=== PATIENT | female | born 1945 | race Caucasian/White ===

== ENCOUNTER 2020-11-16 10:38 | Inpatient (IN) | payer MEDICARE ==
[~2020-11-16] VITALS: Ht 154.9 cm; Wt 54.4 kg
[~2020-11-16 10:38] MED LIST: AMBIEN5 MG PO; CO Q-10-VIT E-1 EACH PO; ELIQUIS2.5 MG PO; LEVOTHYROXINE50 MCG PO; OMEPRAZOLE20 MG PO; ONE DAILY COMP1 EACH PO; PRINIVIL20 MG PO; TAMOXIFEN CITRA20 MG PO; VITAMIN D35000 UNI1 PO; VOLTAREN EC 7575 MG PO; XANAX1 MG PO; ZOCOR20 MG PO; ZOLOFT100 MG PO
[2020-11-16 11:22] LABS: HEMOGLOBIN 14.4 gm/dl (12.3-15.3); RED BLOOD COUNT 4.5 M/UL (4.00-5.10); WHITE BLOOD COUNT 14.1 K/UL (4.5-11.0)
[2020-11-16 15:41] LABS: HEMOGLOBIN 13.3 gm/dl (12.3-15.3); RED BLOOD COUNT 4.2 M/UL (4.00-5.10)
[2020-11-16 15:42] LABS: WHITE BLOOD COUNT 22.8 K/UL (4.5-11.0)
[2020-11-16] MEDS ORDERED: HYDROCODON-ACE1 EAC6 PO (16:45)
[2020-11-16] MEDS ORDERED: ALENDRONATE SOD10 MG PO (16:45)
[2020-11-16] MEDS ORDERED: MAGNESIUM250 MG PO (16:46)
[2020-11-16] MEDS ORDERED: DOXEPIN HCL100 MG PO (16:46)
[2020-11-16] MEDS ORDERED: ANTIVERT 12.512.5 MG PO (16:46)
[2020-11-16] MEDS ORDERED: ARTHRITIS PAIN100 GM TP (16:47)
[2020-11-17 01:39] LABS: HEMOGLOBIN 12.1 gm/dl (12.3-15.3); RED BLOOD COUNT 3.85 M/UL (4.00-5.10)
[2020-11-17 01:52] LABS: WHITE BLOOD COUNT 10.4 K/UL (4.5-11.0)
[2020-11-18 07:11] LABS: HEMOGLOBIN 10.4 gm/dl (12.3-15.3); WHITE BLOOD COUNT 9.3 K/UL (4.5-11.0)
[2020-11-18 07:26] LABS: RED BLOOD COUNT 3.4 M/UL (4.00-5.10)
[2020-11-19 05:51] LABS: HEMOGLOBIN 10.2 gm/dl (12.3-15.3); RED BLOOD COUNT 3.25 M/UL (4.00-5.10); WHITE BLOOD COUNT 7.5 K/UL (4.5-11.0)
[2020-11-20 07:34] LABS: HEMOGLOBIN 10.2 gm/dl (12.3-15.3); RED BLOOD COUNT 3.25 M/UL (4.00-5.10); WHITE BLOOD COUNT 6.5 K/UL (4.5-11.0)
[2020-11-21 04:34] LABS: HEMOGLOBIN 9.7 gm/dl (12.3-15.3); RED BLOOD COUNT 3.28 M/UL (4.00-5.10); WHITE BLOOD COUNT 6.9 K/UL (4.5-11.0)
[2020-11-22 05:44] LABS: HEMOGLOBIN 10.6 gm/dl (12.3-15.3); RED BLOOD COUNT 3.45 M/UL (4.00-5.10)
[2020-11-22 05:45] LABS: WHITE BLOOD COUNT 9.6 K/UL (4.5-11.0)
[2020-11-22 05:55] LABS: BUN/CREATININE RATIO 24 (0-10)
--- NOTE | 2020-11-22 19:47 | NUR ---
PATIENT COMPLAIN OF BELLY ACHE, FAMILY REQUEST TUBE FEED OFF FOR THE MOMENT. TUBE FEED STOPPED AT THIS TIME. WILL REEVALUATE.
[2020-11-23 05:28] LABS: HEMOGLOBIN 10.6 gm/dl (12.3-15.3); RED BLOOD COUNT 3.41 M/UL (4.00-5.10); WHITE BLOOD COUNT 9.4 K/UL (4.5-11.0)
[2020-11-23 06:10] LABS: BUN/CREATININE RATIO 25 (0-10)
[2020-11-24 05:36] LABS: BUN/CREATININE RATIO 27 (0-10)
[2020-11-24 05:53] LABS: HEMOGLOBIN 10.1 gm/dl (12.3-15.3); RED BLOOD COUNT 3.3 M/UL (4.00-5.10); WHITE BLOOD COUNT 8.7 K/UL (4.5-11.0)
[2020-11-25 03:22] LABS: HEMOGLOBIN 10.4 gm/dl (12.3-15.3); RED BLOOD COUNT 3.35 M/UL (4.00-5.10); WHITE BLOOD COUNT 7.8 K/UL (4.5-11.0)
[2020-11-25 03:42] LABS: BUN/CREATININE RATIO 23 (0-10)
[2020-11-26 02:58] LABS: HEMOGLOBIN 10.3 gm/dl (12.3-15.3); RED BLOOD COUNT 3.29 M/UL (4.00-5.10)
[2020-11-26 03:25] LABS: BUN/CREATININE RATIO 20 (0-10)
[2020-11-26] MEDS ORDERED: IPRAT-ALBUT 0.5-3 ML NEB (11:54)
[2020-11-26] MEDS ORDERED: TOPROL XL100 MG PO (11:54)
[2020-11-26] MEDS ORDERED: CALCIUM500 M1 PO (11:54)
[2020-11-26] MEDS ORDERED: SPIRIVA RESPIMAT4 GM INH (11:54)
[2020-11-26] MEDS ORDERED: AUGMENTIN 875-1 EACH PO (11:54)
[2020-11-26] MEDS ORDERED: HYDROCODON-ACE1 EAC6 PO (16:22)
[2020-11-26] MEDS ORDERED: ALPRAZOLAM0.5 MG PO (16:22)
== END 2020-11-26 15:50 | disposition home health service (06) | DRG 871 ==
LOC: ER1 10:38 → CCU 12:14 → CDU 12:14 → PROG CARE 12:14 → CCU 13:58 → PROG CARE 11-24 19:39
PROVIDERS: Emergency Medicine; Internal Medicine; Internal Medicine Infectious Disease; ADMIT Internal Medicine Interventional Cardiology
PROC: 4A023N7 Measurement of Cardiac Sampling and Pressure, Left Heart, Percutaneous Approach (ICD-10-PCS; principal; 2020-11-16)
PROC: B211YZZ Fluoroscopy of Multiple Coronary Arteries using Other Contrast (ICD-10-PCS; 2020-11-16)
PROC: 4A033BC Measurement of Arterial Pressure, Coronary, Percutaneous Approach (ICD-10-PCS; 2020-11-16)
PROC: 5A09357 Assistance with Respiratory Ventilation, Less than 24 Consecutive Hours, Continuous Positive Airway Pressure (ICD-10-PCS; 2020-11-16)
PROC: 02H633Z Insertion of Infusion Device into Right Atrium, Percutaneous Approach (ICD-10-PCS; 2020-11-16)
PROC: B548ZZA Ultrasonography of Superior Vena Cava, Guidance (ICD-10-PCS; 2020-11-16)
DX: A41.9 Sepsis, unspecified organism (principal); R65.21 Severe sepsis with septic shock; J96.01 Acute respiratory failure with hypoxia; J18.9 Pneumonia, unspecified organism; G92 Toxic encephalopathy; C79.51 Secondary malignant neoplasm of bone; E87.2 Acidosis; C78.02 Secondary malignant neoplasm of left lung; C78.01 Secondary malignant neoplasm of right lung; C78.7 Secondary malignant neoplasm of liver and intrahepatic bile duct; I24.8 Other forms of acute ischemic heart disease; F05 Delirium due to known physiological condition; N17.9 Acute kidney failure, unspecified; Z20.822 Contact with and (suspected) exposure to COVID-19; E87.6 Hypokalemia; I95.9 Hypotension, unspecified; I10 Essential (primary) hypertension; E03.9 Hypothyroidism, unspecified; E78.5 Hyperlipidemia, unspecified; T42.6X5A Adverse effect of other antiepileptic and sedative-hypnotic drugs, initial encounter; B02.9 Zoster without complications; E55.9 Vitamin D deficiency, unspecified; Z96.651 Presence of right artificial knee joint; K59.00 Constipation, unspecified; Z90.11 Acquired absence of right breast and nipple; Z82.49 Family history of ischemic heart disease and other diseases of the circulatory system; Z85.3 Personal history of malignant neoplasm of breast; Z79.890 Hormone replacement therapy; Z79.899 Other long term (current) drug therapy
CPT/HCPCS: 36415; 36600; 51702; 70450; 70553; 71045; 74018; 78306; 80048; 80053; 81001; 82009; 82550; 82553; 82607; 82803; 83605; 83690; 83735; 83874; 83880; 84132; 84439; 84443; 84484; 85025; 85610; 85652; 85730; 86140; 87040; 87081; 87086; 92526; 92610; 93005; 94640; 94660; 94664; 94760; 96374; 97110-GP-CQ; 97162; 97530-GP-CQ; 99285; A9503; A9577; C1769; C9113; J0583; J0692; J1630; J1644; J1650; J1940; J2020; J2060; J2185; J2270; J2310; J2370; J2405; J3475; J3480; J7030; J7040; J7050; Q9965; Q9967; U0002

== ENCOUNTER 2020-11-30 18:57 | Observation (INO) | payer MEDICARE ==
[~2020-11-30] VITALS: Ht 154.9 cm; Wt 77.1 kg
[~2020-11-30 18:57] MED LIST changes: +ALENDRONATE SOD10 MG PO; +ALPRAZOLAM0.5 MG PO; +ANTIVERT 12.512.5 MG PO; +ARTHRITIS PAIN100 GM TP; +AUGMENTIN 875-1 EACH PO; +CALCIUM500 M1 PO; +DOXEPIN HCL100 MG PO; +HYDROCODON-ACE1 EAC6 PO; +IPRAT-ALBUT 0.5-3 ML NEB; +MAGNESIUM250 MG PO; +SPIRIVA RESPIMAT4 GM INH; +TOPROL XL100 MG PO
[2020-11-30 19:30] LABS: HEMOGLOBIN 10.1 gm/dl (12.3-15.3); RED BLOOD COUNT 3.25 M/UL (4.00-5.10); WHITE BLOOD COUNT 7.2 K/UL (4.5-11.0)
[2020-12-01] MEDS ORDERED: NEURONTIN600 MG PO (07:50)
[2020-12-01] MEDS ORDERED: XANAX0.5 MG PO (12:48)
[2020-12-01] MEDS ORDERED: ALENDRONATE SOD10 MG PO (12:55)
[2020-12-01] MEDS ORDERED: HYDROCODON-ACE1 EAC6 PO (23:34)
[2020-12-03 09:34] LABS: ACINETOBACTER BAUMANNII Not Detected (Negative); ENTEROCOCCUS Not Detected (Negative); KPC-CARBAPENEM-RESISTANCE GENE Not Detected (Negative); STAPHYLOCOCCUS Not Detected (Negative); STAPHYLOCOCCUS AUREUS Not Detected (Negative); STREP AGALACTIAE (GROUP B) Not Detected (Negative); STREP PYOGENES (GROUP A) Not Detected (Negative); STREPTOCOCCUS Not Detected (Negative); mecA (METHICILLIN RESIST GENE Not Detected (Negative); vanA/B (VANCOMYCIN RESIST GENE Not Detected (Negative)
[2020-12-03 09:35] LABS: CANDIDA ALBICANS Not Detected (Negative); CANDIDA KRUSEI Not Detected (Negative); CANDIDA TROPICALIS Not Detected (Negative); ESCHERICHIA COLI Not Detected (Negative); HAEMOPHILUS INFLUENZAE Not Detected (Negative); KLEBSIELLA OXYTOCA Not Detected (Negative); KLEBSIELLA PNEUMONIAE Not Detected (Negative); PROTEUS Not Detected (Negative); PSEUDOMONAS AERUGINOSA Not Detected (Negative); SERRATIA MARCESANS Not Detected (Negative)
--- NOTE | 2020-12-03 15:39 | NUR ---
1530- POSITIVE BLOOD CULTURE CALLED TO DR. PAYNE. STATED SHE WOULD CHECK RESULTS.
[2020-12-05 05:38] LABS: BUN/CREATININE RATIO 13 (0-10)
--- NOTE | 2020-12-05 17:02 | NUR ---
REPORT CALLED TO JOSHUA AT [facility].
== END 2020-12-05 16:36 | disposition home or self-care (01) ==
LOC: ER1 18:57 → MED SURG 4 20:59 → CDU 20:59 → MED SURG 4 23:47
PROVIDERS: Emergency Medicine; ADMIT Internal Medicine
DX: N17.9 Acute kidney failure, unspecified (principal); G93.41 Metabolic encephalopathy; C50.919 Malignant neoplasm of unspecified site of unspecified female breast; C78.00 Secondary malignant neoplasm of unspecified lung; E03.9 Hypothyroidism, unspecified; F41.9 Anxiety disorder, unspecified; I10 Essential (primary) hypertension; E78.5 Hyperlipidemia, unspecified; R31.29 Other microscopic hematuria; Z79.891 Long term (current) use of opiate analgesic; Z79.899 Other long term (current) drug therapy; Z20.822 Contact with and (suspected) exposure to COVID-19
CPT/HCPCS: 36415; 51701; 71045; 80048; 80053; 80202; 81001; 83605; 83690; 83735; 84100; 85025; 87040; 87077; 87086; 87150; 94640; 94664; 94760; 96372; 96374; 96375; 96376; 97116-GP-CQ; 97162; 97166; 97535; 99285; G0378; J0696; J1644; J3370; J7030; J7070; U0002

== ENCOUNTER → 2021-02-02 | Outpatient (CLI) | payer MEDICARE, OTHER ==
[~2021-02-02] MED LIST changes: +NEURONTIN600 MG PO; +XANAX0.5 MG PO
== END ==
LOC: US 09:45
DX: K76.9 Liver disease, unspecified (principal); R93.2 Abnormal findings on diagnostic imaging of liver and biliary tract; D64.9 Anemia, unspecified; Z85.3 Personal history of malignant neoplasm of breast; Z90.49 Acquired absence of other specified parts of digestive tract; Z98.890 Other specified postprocedural states
CPT/HCPCS: 76705

== ENCOUNTER → 2021-06-23 | Outpatient (CLI) | payer MEDICARE | LOC: OPSV 09:17 | DX: R91.8 Other nonspecific abnormal finding of lung field (principal); D64.9 Anemia, unspecified; Z85.3 Personal history of malignant neoplasm of breast; E55.9 Vitamin D deficiency, unspecified; R93.2 Abnormal findings on diagnostic imaging of liver and biliary tract | CPT/HCPCS: 71260; 96360; J7030 ==

== ENCOUNTER → 2022-01-09 | Outpatient (CLI) | payer MEDICARE | LOC: MRI 13:31 | DX: R41.82 Altered mental status, unspecified (principal); Z85.3 Personal history of malignant neoplasm of breast; G31.9 Degenerative disease of nervous system, unspecified | CPT/HCPCS: 70551 ==

== ENCOUNTER → 2022-01-12 | Outpatient (CLI) | payer MEDICARE | LOC: CT 11-16 11:00 | DX: C79.81 Secondary malignant neoplasm of breast (principal); Z85.3 Personal history of malignant neoplasm of breast; K59.00 Constipation, unspecified | CPT/HCPCS: 71250 ==